=== PATIENT | male | born 1945 | race Caucasian/White ===

== ENCOUNTER 2024-04-02 07:27 | Emergency (ER) | payer MEDICARE ==
[~2024-04-02] VITALS: Ht 185.4 cm; Wt 75.0 kg
[2024-04-02] MEDS ORDERED: CHOL2000 PO (07:45)
[2024-04-02] MEDS ORDERED: AMLO2.5T29 PO (07:45)
[2024-04-02] MEDS ORDERED: ATOR20TA65 PO (07:45)
[2024-04-02] MEDS ORDERED: TRAZ150T79 PO (07:45)
[2024-04-02] MEDS: LORazepam 1 MG TABLET PO ONE (07:55)
[2024-04-02 08:22] LABS: BASOPHILS % (AUTO) 0.9 % (0.0-2.0); EOSINOPHILS % (AUTO) 0.9 % (1.0-6.0); HEMATOCRIT 47.2 % (41-53); HEMOGLOBIN 15.9 g/dL (13.5-17.5); LYMPHOCYTES # (AUTO) 1.8 K/uL (1.0-4.8); LYMPHOCYTES % (AUTO) 20.4 % (22.0-44.0); MEAN CORPUSCULAR HEMOGLOBIN 31.6 pg (26.0-34.0); MEAN CORPUSCULAR HGB CONC 33.8 G/dL (31.0-37.0); MEAN CORPUSCULAR VOLUME 94 fL (80-100); MONOCYTES # (AUTO) 0.8 K/uL (0.1-1.0); NEUTROPHILS # (AUTO) 6.2 K/uL (1.8-7.7); NEUTROPHILS % (AUTO) 68.8 % (40.0-70.0); PLATELET COUNT (AUTO) 239 K/uL (150-450); RED BLOOD CELL COUNT(AUTO) 5.05 MIL/uL (4.50-5.90); RED CELL DISTRIBUTION WIDTH 14.2 % (11.5-14.5); WHITE BLOOD COUNT (AUTO) 9.1 K/uL (4.5-11.0)
[2024-04-02 08:36] LABS: ANION GAP 10 mmol/L (8-16); CALCIUM, TOTAL 8.9 mg/dL (8.8-10.5); CARBON DIOXIDE 25 mmol/L (22-29); CHLORIDE 100 mmol/L (98-107); CREATININE 0.75 mg/dL (0.60-1.30); GLOMERULAR FILTR. RATE CALC > 60 mL/min (>60); GLUCOSE,RANDOM 97 mg/dL (70-110); SODIUM SERUM 135 mmol/L (136-145); UREA NITROGEN, BLOOD 8 mg/dL (7-18)
[2024-04-02 08:40] LABS: TROPONIN I-HIGH SENSITIVITY 9 ng/L (<76)
[2024-04-02 08:44] LABS: B-TYPE NATRIURETIC PEPTIDE 58 pg/mL (0-100)
[2024-04-02 08:48] LABS: THYROID STIMULATING HORMONE 2.22 uIU/mL (0.36-3.74)
[2024-04-02 08:53] VITALS: TEMP 98
[2024-04-02 09:19] LABS: ALCOHOL, URINE DRUG SCREEN NEGATIVE (NEGATIVE); AMPHET/METH SCREEN,URINE NEGATIVE (NEGATIVE); BARBITURATE SCREEN, URINE NEGATIVE (NEGATIVE); BENZODIAZEPINES SCREEN,URINE NEGATIVE (NEGATIVE); CANNABINOID SCREEN,URINE POSITIVE (NEGATIVE); COCAINE SCREEN,URINE NEGATIVE (NEGATIVE); METHADONE SCREEN, URINE NEGATIVE (NEGATIVE); OPIATE SCREEN,URINE NEGATIVE (NEGATIVE); PHENCYCLIDINE SCREEN,URINE NEGATIVE (NEGATIVE)
[2024-04-02 09:25] LABS: APPEARANCE,URINE CLEAR (CLEAR); BILIRUBIN,URINE NEGATIVE (NEGATIVE); COLOR,URINE YELLOW (YELLOW); GLUCOSE, URINE (UA) NEGATIVE (NEGATIVE); KETONES,URINE NEGATIVE (NEGATIVE); LEUKOCYTE ESTERASE ,URINE NEGATIVE (NEGATIVE); NITRATE,URINE NEGATIVE (NEGATIVE); OCCULT BLOOD,URINE NEGATIVE (NEGATIVE); PROTEIN,URINE NEGATIVE (NEGATIVE); SPECIFIC GRAVITIY, URINE 1.016 (1.003-1.030); UROBILINOGEN,URINE <=1.0 mg/dL (<=1.0)
[2024-04-02 09:39] LABS: COVID AG,FIA SOURCE NASAL SWAB
[2024-04-02 10:41] LABS: SARS-COV2 (COVID) ANTIGEN,FIA Negative (Negative)
[2024-04-02 12:46] VITALS: BP 135/77; PULSE 67; RESP 18; O2SAT 97
== END 2024-04-02 15:00 ==
LOC: EMS 07:27
DX: F41.9 Anxiety disorder, unspecified (principal); I10 Essential (primary) hypertension; Z20.822 Contact with and (suspected) exposure to COVID-19
CPT/HCPCS: 80048; 80307; 81003; 83880; 84443; 84484; 85025; 93005; 99283; 99285

== ENCOUNTER 2024-04-05 14:13 | Emergency (ER) | payer MEDICARE, BC ==
[~2024-04-05] VITALS: Ht 180.3 cm; Wt 0.9 kg
[~2024-04-05 14:13] MED LIST: AMLO2.5T29 PO; ATOR20TA65 PO; CHOL2000 PO; TRAZ150T79 PO
[2024-04-05 14:27] VITALS: BP 137/72; PULSE 106; RESP 14; TEMP 99.7; O2SAT 98
[2024-04-05 15:10] LABS: BASOPHILS % (AUTO) 0.6 % (0.0-2.0); EOSINOPHILS % (AUTO) 0.7 % (1.0-6.0); HEMATOCRIT 43.4 % (41-53); HEMOGLOBIN 14.5 g/dL (13.5-17.5); LYMPHOCYTES # (AUTO) 0.6 K/uL (1.0-4.8); LYMPHOCYTES % (AUTO) 7.7 % (22.0-44.0); MEAN CORPUSCULAR HEMOGLOBIN 31.4 pg (26.0-34.0); MEAN CORPUSCULAR HGB CONC 33.5 G/dL (31.0-37.0); MEAN CORPUSCULAR VOLUME 94 fL (80-100); MONOCYTES # (AUTO) 0.9 K/uL (0.1-1.0); NEUTROPHILS # (AUTO) 6.2 K/uL (1.8-7.7); PLATELET COUNT (AUTO) 199 K/uL (150-450); RED BLOOD CELL COUNT(AUTO) 4.63 MIL/uL (4.50-5.90); RED CELL DISTRIBUTION WIDTH 14.2 % (11.5-14.5); WHITE BLOOD COUNT (AUTO) 7.8 K/uL (4.5-11.0)
[2024-04-05 15:26] LABS: ANION GAP 9 mmol/L (8-16); CALCIUM, TOTAL 8.6 mg/dL (8.8-10.5); CARBON DIOXIDE 23 mmol/L (22-29); CHLORIDE 95 mmol/L (98-107); GLOMERULAR FILTR. RATE CALC > 60 mL/min (>60); GLUCOSE,RANDOM 103 mg/dL (70-110); POTASSIUM 3.9 mmol/L (3.5-5.1); SODIUM SERUM 127 mmol/L (136-145); UREA NITROGEN, BLOOD 11 mg/dL (7-18)
[2024-04-05 15:27] LABS: TROPONIN I-HIGH SENSITIVITY 10 ng/L (<76)
[2024-04-05 15:29] LABS: ALCOHOL, BLOOD (SERUM) < 3 mg/dL (0-10)
[2024-04-05 15:31] LABS: ALANINE AMINOTRANSFERASE 29 U/L (12-78); ALBUMIN 3.3 g/dL (3.4-5.0); ALKALINE PHOSPHATASE 86 U/L (46-116); ASPARTATE AMINOTRANSFERASE 22 U/L (15-37); BILIRUBIN,TOTAL 0.5 mg/dL (0.1-1.0); TOTAL PROTEIN, SERUM 7.1 g/dL (6.4-8.2)
[2024-04-05 15:35] LABS: B-TYPE NATRIURETIC PEPTIDE 60 pg/mL (0-100)
[2024-04-05] MEDS: LORazepam 1 MG TABLET PO ONE (16:25)
[2024-04-05 17:16] LABS: TROPONIN I-HIGH SENSITIVITY 11 ng/L (<76)
== END 2024-04-05 17:00 | disposition home or self-care (01) ==
LOC: EMS 14:13
DX: F41.9 Anxiety disorder, unspecified (principal); F32.A Depression, unspecified; E78.00 Pure hypercholesterolemia, unspecified; I10 Essential (primary) hypertension
CPT/HCPCS: 99284; 80053; 83880; 84484; 85025; 36415; 93005; G0480